=== PATIENT | male | born 1940 | race Caucasian/White ===

== ENCOUNTER 2019-09-25 11:13 | Emergency (ER) | payer OTHER ==
[~2019-09-25] VITALS: Ht 182.9 cm; Wt 81.6 kg
[2019-09-25 13:19] LABS: Basophils # (auto) 0 uL; Basophils % (auto) 0.4 % (0.0-2.0); Eosinophils # (auto) 0 uL; Eosinophils % (auto) 0.2 % (0.0-7.0); Hematocrit 42.1 % (41.0-53.0); Lymphocytes # (auto) 0.6 uL; Lymphocytes % (auto) 6.1 % (10.0-50.0); Mean Corpuscular Hemoglobin 30.2 pg (28.0-32.0); Mean Corpuscular Hgb Conc. 33.2 g/dL (32.0-36.0); Mean Corpuscular Volume 90.9 fL (80.0-100.0); Monocytes # (auto) 0.6 uL; Monocytes % (auto) 5.4 % (0.0-12.0); Neutrophils # (auto) 9.3 uL; Neutrophils % (auto) 87.9 % (37.0-80.0); Nucleated Red Blood Cells % 0.1 %; Platelet Count (auto) 169 10^3/uL (140-450); Red Blood Cells 4.63 10^6/uL (4.5-5.90); Red Cell Distribution Width 12.7 % (11.8-14.3); White Blood Cell 10.6 10^3/uL (4.4-10.8)
[2019-09-25 13:34] LABS: INR 1.13 (0.9-1.15); Partial Thromboplastin Time 30.5 sec (23.64-32.05)
[2019-09-25 13:35] LABS: Albumin 3.4 g/dL (3.4-5.0); Anion Gap 7 (5-15); Blood Urea Nitrogen 19 mg/dL (7-18); Calcium 8.2 mg/dL (8.5-10.1); Carbon Dioxide 28 mmol/L (21-32); Chloride 108 mmol/L (98-107); Glucose 98 mg/dL (74-106); Magnesium 2.6 mg/dL (1.6-2.6); Potassium 3.8 mmol/L (3.5-5.1); Sodium 143 mmol/L (136-145)
[2019-09-25 13:41] LABS: Alanine Aminotransferase 19 U/L (16-61); Alkaline Phosphatase 39 U/L (45-117); Aspartate Aminotransferase 23 U/L (15-37); BUN/Creatinine Ratio 21.3; GFR African American 107 mL/min; GFR Non-African American 88 mL/min; Total Protein 6.9 g/dL (6.4-8.2)
[2019-09-25] MEDS ORDERED: ONDANSETRON HCL 4 MG/2 ML VIAL IV ONE (13:45)
[2019-09-25] MEDS ORDERED: MORPHINE SULFATE 4 MG/ML SYR/VIAL IV ONE (13:45)
[2019-09-25 14:29] LABS: Urine Bacteria NONE SEEN /hpf (None Seen); Urine Blood Negative /uL (Negative); Urine Mucus FEW (None Seen); Urine Specific Gravity 1.017 (1.001-1.035); Urine WBC 2 /hpf (0 - 3)
[2019-09-25 17:25] VITALS: BP 153/76
== END 2019-09-25 17:35 | disposition short-term general hospital (02) ==
LOC: ER 11:13 → EDBD 11:13 → ER 17:35
DX: S32.030A Wedge compression fracture of third lumbar vertebra, initial encounter for closed fracture (principal); I25.2 Old myocardial infarction; I50.9 Heart failure, unspecified; W19.XXXA Unspecified fall, initial encounter; Y93.89 Activity, other specified; Y99.8 Other external cause status; Y92.89 Other specified places as the place of occurrence of the external cause
CPT/HCPCS: 36415; 71045; 72131; 80053; 81001; 83735; 84484; 85025; 85610; 85730; 96374; 96375; 99285; J2270; J2405; 93005